=== PATIENT | female | born 1995 | race Caucasian/White ===

== ENCOUNTER → 2018-03-01 | Outpatient (CLI) | payer OTHER ==
--- NOTE | 2018-03-01 14:49 | RADIOLOGY IMAGING REPORT ---
FACILITY: PATIENT NAME: Nalini Salgado : 1995 MR: [id number] V: [id number] EXAM DATE: ORDERING PHYSICIAN: HOLLAND CARBONE TECHNOLOGIST: [place] [facility] [place] Nalini Sal[place] : 1995 Visit/Account:[id number] Date of Sevice: 03/01/2018 Exam type: Right lower quadrant ultrasound History: Right lower quadrant pain Comparison: None. TECHNIQUE: Grayscale and color flow imaging of the right lower quadrant was performed. Findings: The appendix is visualized and right lower quadrant and appears normal. The appendix measures 5.3 cm in length and 4 mm in greatest short axis. The right ovary measures 2.8 x 2.4 x 2.7 cm with a small involuting follicle. Normal color Doppler w aveforms are documented right ovary. Small moderate free fluid is noted right lower quadrant. Small benign right lower quadrant lymph node measures 1.2 x 1.2 x 0.4 cm. IMPRESSION: 1. The appendix is visualized and appears to be normal. 2. Normal-appearing right ovary for age with an involuting follicle. Patient was tender while scann ing over the right ovary. Report Dictated By: Rey Diehl MD at 03/01/2018 2:42 PM Report E-Signed By: Rey Diehl MD at 03/01/2018 2:45 PM WSN:[email or web address]
== END ==
LOC: US 13:26
PROVIDERS: ATTEND Physician Assistant
DX: R10.31 Right lower quadrant pain (principal)

== ENCOUNTER 2018-03-25 02:13 | Day surgery (SDC) | payer OTHER ==
[2018-03-25] VITALS (8 sets, daily range): BP systolic 100–116; BP diastolic 58–71
[~2018-03-25] VITALS: Ht 167.6 cm; Wt 55.8 kg
[~2018-03-25 02:13] MED LIST: MULT1CAP59 PO
[2018-03-25 07:40] LABS: PLATELET COUNT, AUTOMATED 261 K/uL (150-450)
[2018-03-25] MEDS ORDERED: FAMOTIDINE 20 MG TAB PO ONE (07:40)
[2018-03-25] MEDS ORDERED: LIDOCAINE/SOD BICARB 8.4% SYR ID ONE (08:10)
[2018-03-25] MEDS ORDERED: NORMOSOL R SOLN(*) 1000 ML BAG 1,000 ML IV PRN (08:10)
[2018-03-25] MEDS ORDERED: MIDAZOLAM 2 MG/2 ML VIAL IVP PRN (08:10)
[2018-03-25] MEDS ORDERED: DEXAMETHASONE SOD 4 MG/ML VIAL ONE (09:20)
[2018-03-25] MEDS ORDERED: PROPOFOL EMUL(*) 10MG/ML 20 ML 20 ML ONE (09:20)
[2018-03-25] MEDS ORDERED: ONDANSETRON 4 MG/2 ML VIAL ONE (09:20)
[2018-03-25] MEDS ORDERED: ROCURONIUM BROM 10 MG/ML 10 ML ONE (09:20)
[2018-03-25] MEDS ORDERED: fentaNYL CITR 100 MCG/2 ML AMP ONE ×3 (09:22→11:26)
[2018-03-25] MEDS ORDERED: ROPIVACAINE 0.2% 20 ML VIAL ONE (09:28)
[2018-03-25] MEDS ORDERED: LOR5/325 PO (09:29)
[2018-03-25] MEDS ORDERED: ONDA4TAB PO (09:29)
[2018-03-25] MEDS ORDERED: ESMOLOL 10 MG/ML 10ML SDV ONE (09:53)
[2018-03-25] MEDS ORDERED: KETOROLAC 30 MG/ML VIAL ONE (10:48)
[2018-03-25] MEDS ORDERED: HYDROmorphone HCL 2 MG/ML SDV ONE (10:50)
[2018-03-25] MEDS ORDERED: SUGAMMADEX SOD 200 MG/2 ML SDV ONE (11:00)
--- NOTE | 2018-03-25 11:16 | Post Operative Note ---
Operative Note - [employer] Operative Day Date: Mar 25, 2018 Time: 11:14 Physicians Surgeon: Tanisha Anesthesia: GETA Diagnosis Pre-Op Diagnosis: dyspareunia dysmenorrhea RLQ abdominal pain Post-Op Diagnosis: same adhesions RLQ abdomen endometriosis Procedure Findings: endometriosis adhesion in RLQ to accending colon Procedure(s): L-scope resection of endometriosis L-scope adhesiolysis Specimen Removed:(Maybe N/A): endometriosis posterior culdesac Complications: [id number] Fluids Fluids: 1200 ml Estimated Blood Loss: minimal Dictated Date OP Note Dictated: Mar 25, 2018 Time OP Note Dictated: 11:16 Copies to: KATIE HE MD ; KATIE HE MD Mar 25, 2018 11:16
[2018-03-25] MEDS ORDERED: LR(*) 1000 ML BAG 1,000 ML IV ONE (11:17)
--- NOTE | 2018-03-25 11:18 | Short(Outpt) Discharge Summary ---
Discharge Summary Reason for Hosp/Final Diag: (1) Dysmenorrhea (2) Dyspareunia, female (3) Endometriosis, pelvic peritoneum Hospital Course & Plan: s/p L-scope resection and adhesiolysis Departure Discharge to: Home, Self Care Discharge Instructions Home Meds Active Scripts Hydrocodone Bit/Acetaminophen (HYDROCODON-ACETAMINOPHEN 5-325) 1 Each Tablet, 1 EACH PO Q4-6H, #20 TAB 0 Refills Prov:KATIE HE MD 03/25/18 Reported Medications Multivitamin (MULTIVITAMINS) 1 Each Capsule, 1 EACH PO DAILY, CAPSULE 03/22/18 Follow up Referrals: FUNCTIONAL ARCHITECT - In 6 Weeks @ [facility] with KATIE HE MD Diet: Regular Activity: As Tolerated, With Walker, No Heavy Lifting Copies to: KATIE HE MD ; KATIE HE MD Mar 25, 2018 09:30
[2018-03-25] MEDS ORDERED: APAP/HYDROCODONE 325/5 TAB PO PRN (11:20)
--- NOTE | 2018-03-25 14:53 | OPERATIVE REPORT 1 ---
EVENT DATE: March 25, 2018 SURGEON: Mckinley Garay MD ANESTHESIOLOGIST: Davy Arango MD ANESTHESIA: General endotracheal. PREOPERATIVE DIAGNOSES 1. Dysmenorrhea. 2. Dyspareunia. 3. Right lower quadrant abdominal pain. POSTOPERATIVE DIAGNOSES 1. Dysmenorrhea. 2. Dyspareunia. 3. Right lower quadrant abdominal pain. 4. Pelvic peritoneal endometriosis. 5. Right lower quadrant abdominal wall adhesion. PROCEDURES PERFORMED 1. Laparoscopic excision of endometriosis. 2. Adhesiolysis. ESTIMATED BLOOD LOSS Minimal. FLUIDS Crystalloid 1200 mL IV. FINDINGS Inspecting the abdomen and the pelvis, there was an adhesion in the right lower quadrant of the ascending colon of an unknown reason to the anterior abdominal wall. The pelvis was normal on gross inspection with normal ovaries and tubes bilaterally, normal-appearing uterus. However, in the posterior cul-de-sac along the right side was a definite island of apparent endometriosis with surrounding inflammation. Bilateral ovarian fossae were clear of endometriosis. The anterior cul-de-sac was clear of endometriosis. No other visible lesions or pathology seen. PROCEDURE IN DETAIL Patient was brought to the operating room with a working IV, placed in the dorsal supine position. She was placed under general endotracheal anesthesia and then prepped and draped in the usual sterile fashion in the dorsal lithotomy position. Using a weighted speculum, the cervix was visualized and grasped on the anterior lip with a single-toothed tenaculum. It was carefully sounded to a depth of 8 cm anteverted. A size 8 GLORIA uterine manipulator was selected. The cervix was dilated to accommodate, and it was passed through the cervix into the uterus. Balloon inflated and secured, and all other instruments were then removed. The bladder had been drained prior to the procedure. Gloves were changed, and I proceeded laparoscopically by infiltrating the umbilicus with 0.2% Naropin. A 5 mm stab incision was made with an 11 blade scalpel within the umbilicus. The Veress needle was passed through this incision into the abdomen while stabilizing the anterior abdominal wall, and a pneumoperitoneum was created to an intra-abdominal pressure of 20 mmHg. This was then removed, and a 5 mm bladeless trocar was passed through the incision while stabilizing the anterior abdominal wall into the abdomen without injury. The abdomen and pelvis were surveyed with the above findings noted. The patient was moved to the Trendelenburg position. Two additional 5 mm ports were placed in the left lower quadrant and suprapubic location under a similar technique and via direct visualization with no incident. Through these ports instruments were passed to perform the procedure. The endometriosis in the posterior cul-de-sac was grasped with a [place] grasper and put on stretch. The island of endometriosis was excised from the peritoneum using Endo Maura with monopolar cautery. Upon completion, there was excellent hemostasis. The pelvis was copiously irrigated and suctioned dry. The adhesion in the right lower quadrant was then addressed, gradually taking down the adhesion from the anterior abdominal wall with the same Endo Shear scissors and monopolar cautery. Specific care was taken to avoid excision anywhere near the intestinal muscularis. The adhesions were taken down to a sufficient quantity as to relieve tension in that area. The appendix was visualized and seemed to be normal in appearance and long. The area was copiously irrigated and suctioned dry. She was leveled back out. Pneumoperitoneum was suctioned out. All instruments were removed from the abdomen. Skin incisions were repaired with a 4-0 Monocryl simple subdermal and covered with Dermabond skin adhesive. She tolerated the procedure well. Sponge, lap, instrument, and needle counts were all correct times three. She was awakened from anesthesia in stable condition and taken to Recovery. CORINE
== END 2018-03-25 12:13 | disposition home or self-care (01) ==
LOC: OR 02:13
PROVIDERS: ATTEND Obstetrics & Gynecology
DX: N94.6 Dysmenorrhea, unspecified (principal); N94.10 Unspecified dyspareunia; N80.3 Endometriosis of pelvic peritoneum; R10.31 Right lower quadrant pain; N73.6 Female pelvic peritoneal adhesions (postinfective)
CPT/HCPCS: 36415; 58662; 84703; 85025; 88307; J1100; J1170; J1885; J2250; J2405; J2704; J2795; J3010; J3490

== ENCOUNTER 2018-03-26 21:10 | Emergency (ER) | payer OTHER ==
[~2018-03-26 21:10] MED LIST changes: +LOR5/325 PO; +ONDA4TAB PO
--- NOTE | 2018-03-26 21:24 | ER Report ---
History and Physical Time Seen By MD: 21:24 Hx. of Stated Complaint: Patient states she had an exploratory laporscopic procedure yesterday, and is having chest pain and SOB today HPI/ROS CHIEF COMPLAINT: Chest pain and shortness of breath HISTORY OF PRESENT ILLNESS: This is a 22-year-old female. She had an exploratory laparotomy done yesterday for right lower quadrant abdominal pain. She was found to have endometriosis and some adhesions and had a lysis of adhesions. She is having some tenderness of the lower abdomen but what would be expected after surgery. Incisions have not been a problem. Tonight about 2 hours ago she started feeling short of breath and having chest pain. Improves when she lays back. When she tries to sit or stand this pain worsens. These 2 problems came on at the same time. She has no history of heart problems. No history of lung problems. No family history of these as well. No history of blood clots either personally or with family history. She has had no fevers or chills. She has been eating and drinking a little bit today. She did take one of her hydrocodone tablets at about 6:30 this evening, this was about 3-1/2 hours ago. REVIEW OF SYSTEMS: Allergies: Coded Allergies: Cephalosporins (Verified Allergy, Severe, RASH, 03/26/18) Sulfa (Sulfonamide Antibiotics) (Verified Allergy, Severe, THROAT SWELLING, 03/26/18) promethazine (Verified Allergy, Severe, RASH, 03/26/18) Home Meds Active Scripts Ondansetron (ZOFRAN ODT) 4 Mg Tab.rapdis, 4 MG PO Q12H PRN for NAUSEA, #10 TAB.LIZZ 0 Refills Prov:KATIE HE MD 03/25/18 Hydrocodone Bit/Acetaminophen (HYDROCODON-ACETAMINOPHEN 5-325) 1 Each Tablet, 1 EACH PO Q4-6H, #20 TAB 0 Refills Prov:KATIE HE MD 03/25/18 Reported Medications Multivitamin (MULTIVITAMINS) 1 Each Capsule, 1 EACH PO DAILY, CAPSULE 03/22/18 Reviewed Nurses Notes: Yes Hx Smoking: No Smoking Status: Never Smoker Exposure to Second Hand Smoke?: No Hx Substance Use Disorder: No Hx Alcohol Use: No Constitutional Vital Sign - Last 24 Hours 03/26/18 03/26/18 03/26/18 03/26/18 21:14 21:18 21:30 21:40 Temp 97.9 Pulse 74 81 Resp 17 20 B/P (MAP) 120/81 120/81 (94) 103/77 (86) Pulse Ox 95 97 O2 Delivery Room Air 03/26/18 03/26/18 03/26/18 03/26/18 22:00 22:05 22:30 22:35 Pulse 69 75 Resp 18 22 B/P (MAP) 106/70 (82) 116/69 (85) Pulse Ox 95 97 03/26/18 03/26/18 03/26/18 23:00 23:10 23:30 Pulse 67 Resp 18 B/P (MAP) 95/64 (74) 101/69 (80) Pulse Ox 97 Physical Exam General Appearance: The patient is alert. No acute distress. Eyes: Pupils are equal, round. No pallor, injection or icterus. ENT: Mucous membranes are moist. Normal oral mucosa. Posterior oropharynx is normal. Neck: Supple and non tender. Respiratory: Lungs are clear to auscultation. Cardiovascular: Regular rate and rhythm. No murmurs, gallops or rubs. Normal capillary refill. Normal pulses in both radial and in the posterior tibialis. No edema in upper or lower extremities. Gastrointestinal: Abdomen is soft. It is tender throughout. Abdominal incisions show no signs of infection. Nondistended. Guarding but no rebound. Normal active bowel sounds. No costovertebral angle tenderness with percussion. Neurological: Alert and oriented x3. No focal neurologic deficits. Skin: Warm and dry. No rashes. Musculoskeletal: No pain in the extremities. No pain with palpating the chest wall or the back. DIFFERENTIAL DIAGNOSIS: After history and physical exam, differential diagnosis was considered for shortness of breath and chest pain including but not limited to myocardial ischemia, pericarditis, pulmonary embolus, chest wall pain, pleural inflammation and pulmonary infectious causes. Medical Decision Making Data Points Result Diagram: 03/26/18212303/26/182123 Laboratory Hematology Test 03/26/18 21:24 Red Blood Count 5.09 M/uL (4.17-5.56) Mean Corpuscular Volume 90.1 fL (80.0-96.0) Mean Corpuscular Hemoglobin 30.5 pg (26.0-33.0) Mean Corpuscular Hemoglobin Concent 33.9 g/dL (32.0-36.0) Red Cell Distribution Width 12.9 % (11.5-14.5) Mean Platelet Volume 9.3 fL (7.2-11.1) Neutrophils (%) (Auto) 55.6 % (39.4-72.5) Lymphocytes (%) (Auto) 37.8 % (17.6-49.6) Monocytes (%) (Auto) 5.7 % (4.1-12.4) Eosinophils (%) (Auto) 0.3 % (0.4-6.7) Basophils (%) (Auto) 0.6 % (0.3-1.4) Nucleated RBC Relative Count (auto) 0.0 /100WBC Neutrophils # (Auto) 6.6 K/uL (2.0-7.4) Lymphocytes # (Auto) 4.5 K/uL (1.3-3.6) Monocytes # (Auto) 0.7 K/uL (0.3-1.0) Eosinophils # (Auto) 0.0 K/uL (0.0-0.5) Basophils # (Auto) 0.1 K/uL (0.0-0.1) Nucleated RBC Absolute Count (auto) 0.01 K/uL Erythrocyte Sedimentation Rate 2 mm/HOUR (0-20) Sodium Level 141 mmol/L (137-145) Potassium Level 3.3 mmol/L (3.5-5.0) Chloride Level 107 mmol/L (98-107) Carbon Dioxide Level 24 mmol/L (22-31) Blood Urea Nitrogen 10 mg/dl (7-18) Creatinine 0.80 mg/dl (0.52-1.04) Glomerular Filtration Rate Calc > 60.0 Random Glucose 97 mg/dl (75-110) Calcium Level 8.6 mg/dl (8.4-10.2) Total Bilirubin 0.4 mg/dl (0.2-1.3) Aspartate Amino Transf (AST/SGOT) 22 U/L (0-35) Alanine Aminotransferase (ALT/SGPT) 27 U/L (0-56) Alkaline Phosphatase 42 U/L (0-126) Troponin I < 0.012 ng/ml C-Reactive Protein < 0.5 mg/dl (<1.0) Total Protein 6.8 g/dl (6.3-8.2) Albumin 3.9 g/dl (3.5-5.0) Chemistry Test 03/26/18 21:24 White Blood Count 12.0 k/uL (4.5-11.0) Red Blood Count 5.09 M/uL (4.17-5.56) Hemoglobin 15.5 g/dL (12.0-16.0) Hematocrit 45.9 % (34.0-47.0) Mean Corpuscular Volume 90.1 fL (80.0-96.0) Mean Corpuscular Hemoglobin 30.5 pg (26.0-33.0) Mean Corpuscular Hemoglobin Concent 33.9 g/dL (32.0-36.0) Red Cell Distribution Width 12.9 % (11.5-14.5) Platelet Count 243 K/uL (150-450) Mean Platelet Volume 9.3 fL (7.2-11.1) Neutrophils (%) (Auto) 55.6 % (39.4-72.5) Lymphocytes (%) (Auto) 37.8 % (17.6-49.6) Monocytes (%) (Auto) 5.7 % (4.1-12.4) Eosinophils (%) (Auto) 0.3 % (0.4-6.7) Basophils (%) (Auto) 0.6 % (0.3-1.4) Nucleated RBC Relative Count (auto) 0.0 /100WBC Neutrophils # (Auto) 6.6 K/uL (2.0-7.4) Lymphocytes # (Auto) 4.5 K/uL (1.3-3.6) Monocytes # (Auto) 0.7 K/uL (0.3-1.0) Eosinophils # (Auto) 0.0 K/uL (0.0-0.5) Basophils # (Auto) 0.1 K/uL (0.0-0.1) Nucleated RBC Absolute Count (auto) 0.01 K/uL Erythrocyte Sedimentation Rate 2 mm/HOUR (0-20) Glomerular Filtration Rate Calc > 60.0 Calcium Level 8.6 mg/dl (8.4-10.2) Total Bilirubin 0.4 mg/dl (0.2-1.3) Aspartate Amino Transf (AST/SGOT) 22 U/L (0-35) Alanine Aminotransferase (ALT/SGPT) 27 U/L (0-56) Alkaline Phosphatase 42 U/L (0-126) Troponin I < 0.012 ng/ml C-Reactive Protein < 0.5 mg/dl (<1.0) Total Protein 6.8 g/dl (6.3-8.2) Albumin 3.9 g/dl (3.5-5.0) EKG/Imaging EKG Interpretation 12 lead EKG: Rhythm: normal sinus rhythm, rate 65 [place]: normal QRS: normal ST segments: normal Imaging CT PE DATE: 03/26/2018 11:00 PM INDICATION: Chest pain, short of breath, post op laparoscopy yesterday. COMPARISON: None. TECHNIQUE: Axial CT angiogram was obtained through the chest with intravenous contrast. Sagittal and coronal MPR and MIP coronal reformations were also generated. 75 mL isovue 370. One of the following dose optimization techniques was utilized in the performance of this exam: Automated exposure control; adjustment of the mA and/or kV according to the patient's size; or use of an iterative reconstruction technique. Specific details can be referenced in the facility's radiology CT exam operational policy. FINDINGS: Thyroid / Thoracic Inlet: No visualized thyroid nodule or supraclavicular lymphadenopathy. Pulmonary Arteries: Normal. Heart and Aorta: Normal-size heart with no pericardial effusion. Nonaneurysmal thoracic aorta. Mediastinum and [place]: No lymphadenopathy. Lungs and Pleura: No pleural effusion or pneumothorax. No suspicious consolidation. Breast and Axilla: No axillary lymphadenopathy. Upper Abdomen: Moderate volume of pneumoperitoneum Bones and Soft Tissues: There is a small volume of soft tissue emphysema in the left upper abdomen and lower chest. IMPRESSION: 1. No pulmonary embolism or other acute cardiopulmonary abnormality. 2. Moderate volume pneumoperitoneum and small volume of soft tissue emphysema in the lower chest and upper abdomen likely related to reported laparoscopy yes terday. Correlate with any suspicion of acute intra-abdominal pathology. Dr. Ayala discussed this case with MARIA LUZ JIN on 03/26/2018 11:10 PM. Report Dictated By: Pierre Ayala MD at 03/26/2018 11:00 PM ED Course/Re-evaluation Clinical Indication for ER IV: Hydration, IV Access ED Course After initial evaluation, discussed with the patient and we obtained a CT angiogram given the fact that she is just recently out of surgery. Postsurgical pain appears normal for the day after her surgery and what she had done. She has diffuse pain but it is not her main concern. We got a CT angiogram of the chest which was negative. EKG also was negative as noted above. Normal vital signs throughout her stay. Her labs also were unremarkable. I reviewed all this with the patient. Encouraged her to hydrate more, to keep taking her pain medicines and to get her pain under control. Her pain with deep breaths and feeling short of breath may simply be due to the pain not being adequately controlled. She'll go ahead and do this. She is not having any fevers and chills and I told her to return immediately should she have any fevers or chills with this. She expressed understanding. I did talk to her about possibly doing a CT scan of the abdomen and pelvis however with the surgery just yesterday and everything looking normal I did not think that was warranted, especially because of the normal postoperative pain that appeared to be present. She agreed and will return should she have worsening symptoms or developing fevers or chills. Decision to Disposition Date: Mar 26, 2018 Decision to Disposition Time: 23:38 Depart Departure Latest Vital Signs Vital Signs Date Time Temp Pulse Resp B/P (MAP) Pulse Ox O2 Delivery O2 Flow Rate FiO2 03/26/18 23:30 101/69 (80) 03/26/18 23:10 67 18 97 03/26/18 21:14 97.9 Room Air Impression: Primary Impression: Dyspnea Additional Impression: Chest pain Condition: Improved Disposition: HOME OR SELF-CARE Patient Instructions: Chest Pain (ED) Additional Instructions: We did not find any definitive causes of your chest pain and shortness of breath. There was no sign of infection in the lungs, or blood clots in the lungs. No sign of heart attack or other heart problem. Labs otherwise unremarkable with a mild elevation of white blood cell count. Vital signs were normal tonight including your oxygen levels. The pain with breathing could be due to the irritation of the diaphragm from recent surgery. We recommend continuing to get up an move about. Keep taking your pain medicines to get the pain under better control. Come in right away if you are having fevers/chills, or if having worsening symptoms. Call Dr. He's office on Wednesday to let him know you were in the ER and possible sooner follow-up. Problem Qualifiers Primary Impression: Dyspnea Dyspnea type: unspecified Qualified Codes: R06.00 - Dyspnea, unspecified Additional Impression: Chest pain Chest pain type: chest pain on breathing Qualified Codes: R07.1 - Chest pain on breathing MARIA LUZ JIN MD Mar 26, 2018 21:24
[2018-03-26 21:47] LABS: PLATELET COUNT, AUTOMATED 243 K/uL (150-450)
[2018-03-26] MEDS ORDERED: NS(*) 0.9% 50 ML BAG 50 ML ONE (22:08)
[2018-03-26] MEDS ORDERED: IOPAMIDOL 76% 75 ML INFUS BTL 75 ML ONE (22:08)
--- NOTE | 2018-03-26 23:14 | RADIOLOGY IMAGING REPORT ---
FACILITY: [facility] PATIENT NAME: Nalini Salgado : 1995 MR: [id number] V: [id number] EXAM DATE: ORDERING PHYSICIAN: MARIA LUZ JIN TECHNOLOGIST: Location: [facility] [place] Patient: Nalini Salgado : 1995 Visit/Account:[id number] Date of Sevice: 03/26/2018 CT PE DATE: 03/26/2018 11:00 PM INDICATION: Chest pain, short of breath, post op laparoscopy yesterday. COMPARISON: None. TECHNIQUE: Axial CT angiogram was obtained through the chest with intravenous contrast. Sagittal an d coronal MPR and MIP coronal reformations were also generated. 75 mL isovue 370. One of the follow ing dose optimization techniques was utilized in the performance of this exam: Automated exposure con trol; adjustment of the mA and/or kV according to the patient's size; or use of an iterative reconst ruction technique. Specific details can be referenced in the facility's radiology CT exam operationa l policy. FINDINGS: Thyroid / Thoracic Inlet: No visualized thyroid nodule or supraclavicular lymphadenopathy. Pulmonary Arteries: Normal. Heart and Aorta: Normal-size heart with no pericardial effusion. Nonaneurysmal thoracic aorta. Mediastinum and [place]: No lymphadenopathy. Lungs and Pleura: No pleural effusion or pneumothorax. No suspicious consolidation. Breast and Axilla: No axillary lymphadenopathy. Upper Abdomen: Moderate volume of pneumoperitoneum Bones and Soft Tissues: There is a small volume of soft tissue emphysema in the left upper abdomen an d lower chest. IMPRESSION: 1. No pulmonary embolism or other acute cardiopulmonary abnormality. 2. Moderate volume pneumoperitoneum and small volume of soft tissue emphysema in the lower chest and upper abdomen likely related to reported laparoscopy yesterday. Correlate with any suspicion of acu te intra-abdominal pathology. Dr. Ayala discussed this case with MARIA LUZ JIN on 03/26/2018 11:10 PM. Report Dictated By: Pierre Ayala MD at 03/26/2018 11:00 PM Report E-Signed By: Pierre Ayala MD at 03/26/2018 11:10 PM WSN:[id number]
[2018-03-26] MEDS ORDERED: APAP/HYDROCODONE 325/5 TAB PO ONE (23:35)
--- NOTE | 2018-03-26 23:41 | EKG ---
[place] [facility] [place] NAME: KELLEN WEEKS : [id number] MR: [id number] V: [id number] EXAM DATE: ORDERING PHYSICIAN: MARIA LUZ JIN TECHNOLOGIST: ANA PAULA Sanders Reason : CHEST PAIN Blood Pressure : / mmHG Vent. Rate : 065 BPM Atrial Rate : 065 BPM P-R Int : 132 ms QRS Dur : 070 ms QT Int : 400 ms P-R-T Axes : 062 068 057 degrees QTc Int : 416 ms Normal sinus rhythm Normal ECG No previous ECGs available Confirmed by DAMI PULLIAM ([id number]) on 03/27/2018 7:21:47 AM Referred By: Confirmed By:DAMI PULLIAM
[2018-03-27] VITALS: BP 105/72
== END 2018-03-27 00:03 | disposition home or self-care (01) ==
LOC: ER 21:28
DX: R06.02 Shortness of breath (principal); R07.1 Chest pain on breathing
CPT/HCPCS: 71275; 84484; 85025; 85651; 86140; 93005; 99284; J7050; Q9967; 82040; 82247; 82310; 82374; 82435; 82565; 82947; 84075; 84132; 84155; 84295; 84450; 84460; 84520

== ENCOUNTER 2018-03-31 09:54 | Emergency (ER) | payer OTHER ==
--- NOTE | 2018-03-31 10:26 | ER Report ---
History and Physical Time Seen By MD: 10:05 Hx. of Stated Complaint: CHEST PAIN AND SOB SINCE LAST NIGHT, HAD A LAPAROSCOPY ON WEDNESDAY, WAS SEEN HERE ON SAT FOR THESE SYMPTOMS, THEN WAS OK FOR A FEW DAYS HPI/ROS CHIEF COMPLAINT: chest pain HISTORY OF PRESENT ILLNESS: Patient is 22-year-old female who is 6 days status post ex-lap with reported adhesions and endometriosis. She was seen 5 days ago for complaint of chest pain. At that time a CT PE was performed which showed pneumoperitoneum as expected postop, though no PE. Patient had subsequently been feeling well until last night, when she began to develop pain again. Patient points to epigastric area. Pain is sharp, intermittent, lasting from minutes to more than half an hour. Pain is nonradiating. However, patient does state that she has continued left shoulder pain. Patient has not had prior similar pain with the exception of the presentation 5 days ago. Pain appears to be slightly worse with exertion, better when lying down. Pain is associated with shortness of breath which is also worse with exertion, better with lying down. Patient does not have cough, fever, chills. Patient does not have vomiting. She has taken occasional Pompe[place] for pain. She states she took 1-2 yesterday. Does not notice symptoms that come on after Pompeii. Patient does not have UTI symptoms, leg swelling, leg pain. She has returned to normal activity. She notes no family history of sudden cardiac or blood clotting. REVIEW OF SYSTEMS: Constitutional: No fever, no chills. Eyes: No discharge. ENT: No sore throat. Cardiovascular: above Respiratory: above Gastrointestinal: above Genitourinary: no uti symptoms Musculoskeletal: No back pain. Skin: No rashes. Neurological: No headache. Remainder of the 14 system rev: Yes Allergies: Coded Allergies: Cephalosporins (Verified Allergy, Severe, RASH, 03/26/18) Sulfa (Sulfonamide Antibiotics) (Verified Allergy, Severe, THROAT SWELLING, 03/26/18) promethazine (Verified Allergy, Severe, RASH, 03/26/18) Home Meds Active Scripts Ondansetron (ZOFRAN ODT) 4 Mg Tab.rapdis, 4 MG PO Q12H PRN for NAUSEA, #10 TAB.LIZZ 0 Refills Prov:KATIE HE MD 03/25/18 Hydrocodone Bit/Acetaminophen (HYDROCODON-ACETAMINOPHEN 5-325) 1 Each Tablet, 1 EACH PO Q4-6H, #20 TAB 0 Refills Prov:KATIE HE MD 03/25/18 Reported Medications Multivitamin (MULTIVITAMINS) 1 Each Capsule, 1 EACH PO DAILY, CAPSULE 03/22/18 Reviewed Nurses Notes: Yes Old Medical Records Reviewed: Yes Hx Smoking: No Smoking Status: Never Smoker Exposure to Second Hand Smoke?: No Hx Substance Use Disorder: No Hx Alcohol Use: No Constitutional Vital Sign - Last 24 Hours 03/31/18 03/31/18 03/31/18 03/31/18 09:54 09:58 09:59 10:00 Temp 97.5 Pulse ??? 73 Resp 20 B/P (MAP) 113/84 113/84 (94) 113/74 (87) Pulse Ox 97 O2 Delivery Room Air 03/31/18 03/31/18 03/31/18 03/31/18 10:24 10:54 11:00 11:24 Pulse 80 70 63 Resp 10 23 16 B/P (MAP) 105/76 (86) Pulse Ox 96 97 95 03/31/18 03/31/18 03/31/18 03/31/18 11:30 11:35 12:03 12:05 Pulse 74 71 Resp 17 12 B/P (MAP) 97/68 (78) 110/77 (88) Pulse Ox 97 98 03/31/18 03/31/18 03/31/18 03/31/18 12:30 12:35 13:00 13:05 Pulse 80 87 Resp 8 17 B/P (MAP) 110/77 (88) 104/69 (81) Pulse Ox 97 97 03/31/18 03/31/18 03/31/18 03/31/18 13:30 13:40 13:49 14:10 Pulse 97 88 Resp 10 11 B/P (MAP) 109/82 (91) 109/81 (90) Pulse Ox 97 95 03/31/18 03/31/18 03/31/18 03/31/18 14:30 14:40 15:00 15:05 Pulse 70 78 Resp 12 10 B/P (MAP) 111/66 (81) 104/69 (81) Pulse Ox 95 95 03/31/18 03/31/18 03/31/18 03/31/18 15:30 15:35 16:00 16:05 Pulse 95 78 Resp 12 13 B/P (MAP) 104/66 (79) 96/61 (73) Pulse Ox 93 93 03/31/18 03/31/18 03/31/18 03/31/18 16:30 16:35 17:00 17:05 Pulse 77 90 Resp 19 21 B/P (MAP) 90/59 (69) 100/75 (83) Pulse Ox 93 95 03/31/18 03/31/18 17:20 17:30 Pulse 79 Resp 10 B/P (MAP) 106/75 (85) Pulse Ox 94 Physical Exam General Appearance: The patient is alert, has no immediate need for airway protection and no signs of toxicity. [ ] Eyes: Pupils equal and round no pallor or injection. ENT, Mouth: Mucous membranes are moist. Respiratory: There are no retractions, lungs are clear to auscultation. Cardiovascular: Regular rate and rhythm. no m/r/g Gastrointestinal: epigastric and LUQ ttp with mild guarding. No rebound, no distension. No pulsatile masses. Neurological: alert, oriented, moves all extremities Skin: Warm and dry, no rashes. Musculoskeletal: Neck is supple non tender. Extremities are nontender, nonswollen and have full range of motion. DIFFERENTIAL DIAGNOSIS: After history and physical exam differential diagnosis was considered for chest pain including but not limited to myocardial ischemia, pericarditis pulmonary embolus, chest wall pain, pleural inflammation and pulmonary infectious causes.shortness of breath including but not limited to pulmonary infectious process, COPD, asthma, pulmonary embolus and congestive heart failure. Medical Decision Making Data Points Result Diagram: 03/31/18 1044 03/31/18 1044 Laboratory Hematology Test 03/31/18 10:30 03/31/18 10:44 Urine Color Colorless Urine Clarity Clear Urine pH 6.0 pH (4.8-9.5) Urine Specific [place] 1.002 Urine Protein Negative mg/dL (NEGATIVE) Urine Glucose (UA) Negative mg/dL (NEGATIVE) Urine Ketones Negative mg/dL (NEGATIVE) Urine Blood Negative (NEGATIVE) Urine Nitrite Negative (NEGATIVE) Urine Bilirubin Negative (NEGATIVE) Urine Urobilinogen Negative mg/dL (0.2-1.9) Urine Leukocyte Esterase Negative (NEGATIVE) Urine RBC None /HPF (0-2/HPF) Urine WBC None /HPF (0-5/HPF) Urine Squamous Epithelial Cells None /LPF (</=FEW) Urine Bacteria Few /HPF (NONE-FEW) Urine Mucus None /HPF (NONE-FEW) Red Blood Count 5.34 M/uL (4.17-5.56) Mean Corpuscular Volume 90.1 fL (80.0-96.0) Mean Corpuscular Hemoglobin 30.9 pg (26.0-33.0) Mean Corpuscular Hemoglobin Concent 34.2 g/dL (32.0-36.0) Red Cell Distribution Width 12.7 % (11.5-14.5) Mean Platelet Volume 8.7 fL (7.2-11.1) Neutrophils (%) (Auto) 61.6 % (39.4-72.5) Lymphocytes (%) (Auto) 30.0 % (17.6-49.6) Monocytes (%) (Auto) 6.0 % (4.1-12.4) Eosinophils (%) (Auto) 2.1 % (0.4-6.7) Basophils (%) (Auto) 0.3 % (0.3-1.4) Nucleated RBC Relative Count (auto) 0.1 /100WBC Neutrophils # (Auto) 4.6 K/uL (2.0-7.4) Lymphocytes # (Auto) 2.3 K/uL (1.3-3.6) Monocytes # (Auto) 0.5 K/uL (0.3-1.0) Eosinophils # (Auto) 0.2 K/uL (0.0-0.5) Basophils # (Auto) 0.0 K/uL (0.0-0.1) Nucleated RBC Absolute Count (auto) 0.00 K/uL Sodium Level 140 mmol/L (137-145) Potassium Level 3.8 mmol/L (3.5-5.0) Chloride Level 107 mmol/L (98-107) Carbon Dioxide Level 24 mmol/L (22-31) Blood Urea Nitrogen 9 mg/dl (7-18) Creatinine 0.90 mg/dl (0.52-1.04) Glomerular Filtration Rate Calc > 60.0 Random Glucose 87 mg/dl (75-110) Calcium Level 9.5 mg/dl (8.4-10.2) Total Bilirubin 1.0 mg/dl (0.2-1.3) Aspartate Amino Transf (AST/SGOT) 29 U/L (0-35) Alanine Aminotransferase (ALT/SGPT) 50 U/L (0-56) Alkaline Phosphatase 42 U/L (0-126) Troponin I < 0.012 ng/ml Total Protein 7.6 g/dl (6.3-8.2) Albumin 4.4 g/dl (3.5-5.0) Lipase 106 U/L (23-300) Human Chorionic Gonadotropin, Qual Negative (NEGATIVE) Chemistry Test 03/31/18 10:30 03/31/18 10:44 Urine Color Colorless Urine Clarity Clear Urine pH 6.0 pH (4.8-9.5) Urine Specific [place] 1.002 Urine Protein Negative mg/dL (NEGATIVE) Urine Glucose (UA) Negative mg/dL (NEGATIVE) Urine Ketones Negative mg/dL (NEGATIVE) Urine Blood Negative (NEGATIVE) Urine Nitrite Negative (NEGATIVE) Urine Bilirubin Negative (NEGATIVE) Urine Urobilinogen Negative mg/dL (0.2-1.9) Urine Leukocyte Esterase Negative (NEGATIVE) Urine RBC None /HPF (0-2/HPF) Urine WBC None /HPF (0-5/HPF) Urine Squamous Epithelial Cells None /LPF (</=FEW) Urine Bacteria Few /HPF (NONE-FEW) Urine Mucus None /HPF (NONE-FEW) White Blood Count 7.6 k/uL (4.5-11.0) Red Blood Count 5.34 M/uL (4.17-5.56) Hemoglobin 16.5 g/dL (12.0-16.0) Hematocrit 48.1 % (34.0-47.0) Mean Corpuscular Volume 90.1 fL (80.0-96.0) Mean Corpuscular Hemoglobin 30.9 pg (26.0-33.0) Mean Corpuscular Hemoglobin Concent 34.2 g/dL (32.0-36.0) Red Cell Distribution Width 12.7 % (11.5-14.5) Platelet Count 231 K/uL (150-450) Mean Platelet Volume 8.7 fL (7.2-11.1) Neutrophils (%) (Auto) 61.6 % (39.4-72.5) Lymphocytes (%) (Auto) 30.0 % (17.6-49.6) Monocytes (%) (Auto) 6.0 % (4.1-12.4) Eosinophils (%) (Auto) 2.1 % (0.4-6.7) Basophils (%) (Auto) 0.3 % (0.3-1.4) Nucleated RBC Relative Count (auto) 0.1 /100WBC Neutrophils # (Auto) 4.6 K/uL (2.0-7.4) Lymphocytes # (Auto) 2.3 K/uL (1.3-3.6) Monocytes # (Auto) 0.5 K/uL (0.3-1.0) Eosinophils # (Auto) 0.2 K/uL (0.0-0.5) Basophils # (Auto) 0.0 K/uL (0.0-0.1) Nucleated RBC Absolute Count (auto) 0.00 K/uL Glomerular Filtration Rate Calc > 60.0 Calcium Level 9.5 mg/dl (8.4-10.2) Total Bilirubin 1.0 mg/dl (0.2-1.3) Aspartate Amino Transf (AST/SGOT) 29 U/L (0-35) Alanine Aminotransferase (ALT/SGPT) 50 U/L (0-56) Alkaline Phosphatase 42 U/L (0-126) Troponin I < 0.012 ng/ml Total Protein 7.6 g/dl (6.3-8.2) Albumin 4.4 g/dl (3.5-5.0) Lipase 106 U/L (23-300) Human Chorionic Gonadotropin, Qual Negative (NEGATIVE) Urinalysis Test 03/31/18 10:30 Urine Color Colorless Urine Clarity Clear Urine pH 6.0 pH (4.8-9.5) Urine Specific [place] 1.002 Urine Protein Negative mg/dL (NEGATIVE) Urine Glucose (UA) Negative mg/dL (NEGATIVE) Urine Ketones Negative mg/dL (NEGATIVE) Urine Blood Negative (NEGATIVE) Urine Nitrite Negative (NEGATIVE) Urine Bilirubin Negative (NEGATIVE) Urine Urobilinogen Negative mg/dL (0.2-1.9) Urine Leukocyte Esterase Negative (NEGATIVE) Urine RBC None /HPF (0-2/HPF) Urine WBC None /HPF (0-5/HPF) Urine Squamous Epithelial Cells None /LPF (</=FEW) Urine Bacteria Few /HPF (NONE-FEW) Urine Mucus None /HPF (NONE-FEW) ED Course/Re-evaluation ED Course 22 f presents for second time, 5 d post op from ex lap with reported findings of endometriosis and adhesions. She had pe eval on last evaluation which was neg. She was imprvoed, but developed the same pain last night, with e/o mild Kehr's sign. CT shows persistent pneumoperitoneum that, in discussion with radiologist, is not out of range of norm, though more than usual. I requested ob eval given repeat eval, persistent pain. OB evaluates and feesl that outpt eval is reasonable. Pt is comfortable with this plan. CT shows no e/o perforated viscous, amenable to d/c with SRP's. Decision to Disposition Date: Mar 31, 2018 Decision to Disposition Time: 17:24 Depart Departure Latest Vital Signs Vital Signs Date Time Temp Pulse Resp B/P (MAP) Pulse Ox O2 Delivery O2 Flow Rate FiO2 03/31/18 17:30 106/75 (85) 03/31/18 17:20 79 10 94 03/31/18 09:58 97.5 Room Air Impression: Primary Impression: Surgical pneumoperitoneum Additional Impression: Chest pain Condition: Condition Unchanged Disposition: HOME OR SELF-CARE Referrals: MIRIAM RIVERA MD 2 Days Patient Instructions: Chest Pain (ED) Additional Instructions: As we discussed, I do not see a clear cause of your symptoms. Your Ct shows persistent air, though this is somewhat improved. You may try tums, maalox, or another antacid to see if that helps your symptoms. It is reasonable to follow up closely with OB, however, if you worsen or have further concerns, please return for further evaluation. Problem Qualifiers Additional Impression: Chest pain Chest pain type: unspecified Qualified Codes: R07.9 - Chest pain, unspecified REYES STROUD MD Mar 31, 2018 10:26
[2018-03-31 10:52] LABS: PLATELET COUNT, AUTOMATED 231 K/uL (150-450)
--- NOTE | 2018-03-31 11:27 | EKG ---
FACILITY: [facility] [place] PATIENT NAME: KELLEN WEEKS : [id number] MR: [id number] V: [id number] EXAM DATE: ORDERING PHYSICIAN: REYES STROUD TECHNOLOGIST: ATTILA Test Reason : CHEST PAIN Blood Pressure : / mmHG Vent. Rate : 064 BPM Atrial Rate : 064 BPM P-R Int : 134 ms QRS Dur : 082 ms QT Int : 418 ms P-R-T Axes : 072 071 053 degrees QTc Int : 431 ms Normal sinus rhythm T wave abnormality, consider anterior ischemia Abnormal ECG When compared with ECG of 26-MAR-2018 21:35, Now with T wave inversion in the ant/sep region Confirmed by LINDA ALDANA ([id number]) on 03/31/2018 12:53:54 PM Referred By: MAXIMUS Confirmed By:LINDA ALDANA
--- NOTE | 2018-03-31 11:36 | RADIOLOGY IMAGING REPORT ---
FACILITY: [facility] PATIENT NAME: Nalini Salgado : 1995 MR: [id number] V: [id number] EXAM DATE: ORDERING PHYSICIAN: REYES STROUD TECHNOLOGIST: Location: [facility] Patient: Nalini Salgado : 1995 Visit/Account:[id number] Date of Sevice: 03/31/2018 Study: Frontal and lateral views of the chest Indication: Shortness of breath Comparison study: March 26, 2018 Findings: PA and lateral views of the chest demonstrate no evidence of acute infiltrate. There is no evidence of pleural effusion. There is no evidence of pneumothorax. The mediastinal, cardiac, and diaphragmatic contours are unremarkable. The visualized bony structures are unremarkable. There is a pneumoperitoneum present. This was present on the previous CTA. IMPRESSION: No significant chest abnormality identified. There is a pneumoperitoneum present. Dr. Stroud was made aware of these findings at 11:30 AM. Report Dictated By: Roberto Xiong at 03/31/2018 11:25 AM Report E-Signed By: Roberto Xiong at 03/31/2018 11:31 AM WSN:[id number]
[2018-03-31] MEDS ORDERED: DIATRIZOATE MEGL/DIATRIZOA SOD 367 MG/ML SOLN ONE (12:08)
[2018-03-31] MEDS ORDERED: ONDANSETRON 4 MG/2 ML VIAL IVP ONE (13:15)
[2018-03-31] MEDS ORDERED: IOPAMIDOL 76% 75 ML INFUS BTL 75 ML ONE (13:17)
--- NOTE | 2018-03-31 15:07 | RADIOLOGY IMAGING REPORT ---
FACILITY: [facility] PATIENT NAME: Nalini Salgado : 1995 MR: [id number] V: [id number] EXAM DATE: ORDERING PHYSICIAN: REYES STROUD TECHNOLOGIST: Location: [facility] Patient: Nalini Salgado : 1995 Visit/Account:[id number] Date of Sevice: 03/31/2018 EXAMINATION: CT abdomen and pelvis with contrast COMPARISON: None. HISTORY: Persistent free air 6 days post exploratory laparoscopy. Abdominal pain. PROCEDURE: Multiplanar contrast enhanced CT of the abdomen and pelvis with 75 mL intravenous Isovue 3 70 and enteric contrast. Negative. One of the following dose optimization techniques was utilized in the performance of this exam: Automated exposure control; adjustment of the mA and/or kV according to the patient's size; or use of an iterative reconstruction technique. Specific details can be refer enced in the facility's radiology CT exam operational policy. FINDINGS: Visualized thorax: No evidence of acute disease within the visualized lower thorax. Liver: Negative. Gallbladder and biliary system: Cholecystectomy. No bile duct dilation. Spleen: Negative. Pancreas: Negative. Adrenal glands: Negative. Kidneys and bladder: No renal mass or evidence of an obstructive uropathy. Urinary bladder is unrema rkable. Vessels: Negative. Bowel and mesentery: Stomach, small bowel, and appendix are within normal limits. Minimal stool in th e colon. No bowel or mesenteric inflammation. Enteric contrast is present throughout the entirety of the bowel there is no evidence of contrast extravasation. Pelvic organs: Normally positioned intrauterine device. No adnexal mass. Lymph nodes: No adenopathy. Free air/free fluid: Small amount of pneumoperitoneum. No fluid collection. Abdominal wall and osseous structures: Minimal postoperative change. No abdominal wall fluid collecti on. Minimal soft tissue gas. Osseous structures are unremarkable. IMPRESSION: Small amount of pneumoperitoneum. As there is no other evidence of intra-abdominal pathology this con tinues to be most suggestive of postoperative gas although continued clinical follow-up is required t o fully exclude the presence of an occult bowel injury. Results were discussed with REYES STROUD at 03/31/2018 2:58 PM. Report Dictated By: Thierry Sarabia MD at 03/31/2018 2:17 PM Report E-Signed By: Thierry Sarabia MD at 03/31/2018 3:02 PM WSN:[id number]
--- NOTE | 2018-03-31 17:01 | RADIOLOGY IMAGING REPORT ---
[place] [facility] [place]IENT NAME: Nalini Salgado : 1995 MR: [id number] V: [id number] EXAM DATE: ORDERING PHYSICIAN: REYES STROUD TECHNOLOGIST: Location: [facility] [place] Patient: Nalini Salgado : 1995 Visit/Account:[id number] Date of Sevice: 03/31/2018 VENOUS DOPP LOWER BILAT EXTREM Provided history: post op, dyspnea, lightheaded, evaluate for vte Additional pertinent history: none COMPARISON STUDIES: No relevant priors FINDINGS: Bilateral grayscale, duplex and color Doppler interrogation of the lower extremity deep venous system from common femoral vein to proximal calf was performed. The greater saphenous vein was evaluated us ing similar technique. Right lower extremity: Common femoral vein: negative Femoral vein: negative Deep femoral vein: negative Popliteal vein: negative Visualized deep calf veins: negative Popliteal fossa: negative Greater saphenous vein in the proximal thigh: negative Left lower extremity: Common femoral vein: negative Femoral vein: negative Deep femoral vein: negative Popliteal vein: negative Visualized deep calf veins: negative Popliteal fossa: negative Greater saphenous vein in the proximal thigh: negative IMPRESSION: No evidence of acute DVT in either lower extremity. Report Dictated By: Jude Ortiz MD at 03/31/2018 4:55 PM Report E-Signed By: Jude Ortiz MD at 03/31/2018 4:58 PM WSN:[id number]
[2018-03-31 17:30] VITALS: BP 106/75
--- NOTE | 2018-03-31 18:08 | Hospitalist Consultation ---
History of Present Illness Requesting Physician Dr. Murdock Reason for Consult Pain after surgery Chief Complaint Epigastric pain History of Present Illness 22-year-old G0 presents to the emergency department with a three-day history of epigastric pain with activity and deep inspiration. She underwent a diagnostic laparoscopy with adhesiolysis on 03/25/[address] Garay. She was found to have endometriosis. Initially she felt well, but had right sided shoulder pain consistent with diaphragmatic irritation. Over the last 3 days she has had epigastric sharp pain with deep inspiration. This pain only occurs when she is standing or being active. She had a chest CT the other day in the emergency department which was negative for pulmonary embolism. An abdominal CT today reveals persistent pneumoperitoneum, but no evidence of bowel injury or other pathology. She has generalized abdominal discomfort, but not enough that she would take any narcotics today. Her last dose of hydrocodone at home was last night. She has a history of Gastro esophageal reflux, and reports this pain is different. She denies any fevers or chills. History Home Meds Active Scripts Ondansetron (ZOFRAN ODT) 4 Mg Tab.rapdis, 4 MG PO Q12H PRN for NAUSEA, #10 TAB.LIZZ 0 Refills Prov:KATIE GARAY MD 03/25/18 Hydrocodone Bit/Acetaminophen (HYDROCODON-ACETAMINOPHEN 5-325) 1 Each Tablet, 1 EACH PO Q4-6H, #20 TAB 0 Refills Prov:KATIE GARAY MD 03/25/18 Reported Medications Multivitamin (MULTIVITAMINS) 1 Each Capsule, 1 EACH PO DAILY, CAPSULE 03/22/18 Allergies: Coded Allergies: Cephalosporins (Verified Allergy, Severe, RASH, 03/26/18) Sulfa (Sulfonamide Antibiotics) (Verified Allergy, Severe, THROAT SWELLING, 03/26/18) promethazine (Verified Allergy, Severe, RASH, 03/26/18) Hx Smoking: No Smoking Status: Never Smoker Exposure to Second Hand Smoke?: No Caffeine Intake: Tea, Soda Caffeine/Cups Per Day: OCCASIONAL Hx Alcohol Use: No Hx Substance Use Disorder: No Social Drug Use: Never Review of Systems Constitutional: No Fever Neurological: No Syncope Cardiovascular: Chest Pain (as per HPI); No Palpitations Respiratory: No Shortness of Breath Gastrointestinal: No Nausea, No Vomiting, No Diarrhea; Other (see HPI) Genitourinary: No Dysuria Musculoskeletal: No Pain Psychiatric: No Depression, No Anxiety Exam Vital Signs Vital Signs Date Time Temp Pulse Resp B/P (MAP) Pulse Ox O2 Delivery O2 Flow Rate FiO2 03/31/18 17:30 106/75 (85) 03/31/18 17:20 79 10 94 03/31/18 09:58 97.5 Room Air General Appearance: Alert, Awake, No Acute Distress Neuro: No Gross deficits Cardiovascular: Normal Rhythm & Peripheral Pulses, Regular Rate and Rhythm Respiratory: No Respiratory Distress, Clear to Auscultation GI: Abd Soft and Non-Tender, Other (incisions are healing well without sign of infection) Musculoskeletal: No Weakness/Pain Extremities: Soft and Non Tender Integumentary: Skin Intact without Lesion / Mass Psych: Alert & Oriented X3, Appropriate Mood & Affect Medical Decision Making Data Points Result Diagram: 03/31/18 1044 03/31/18 1044 Assessment and Plan Problems: (1) Chest pain Status: Acute Assessment & Plan: 22-year-old G0 presents to the emergency department with a three-day history of epigastric pain with activity and deep inspiration. She has had a thorough examination by Dr. Murdock, without indication for the cause of her discomfort other than possible diaphragmatic irritation due to pneumoperitoneum. She had a normal bilateral DVT evaluation with ultrasound. I do not see anything concerning on her exam today. She was given precautions and asked to follow-up within the next week with Dr. Garay. Time Spent on Plan of Care: < 30 min Venous Thromboembolism Antithrombotics Is Pt On Any Antithrombotics?: No Exam Sepsis Risk: No Definite Risk Problem Qualifiers (1) Chest pain: Chest pain type: unspecified Qualified Codes: R07.9 - Chest pain, unspecified MIRIAM RIVERA MD Mar 31, 2018 18:08
== END 2018-03-31 17:37 | disposition home or self-care (01) ==
LOC: ER 10:13
DX: K66.8 Other specified disorders of peritoneum (principal); R07.9 Chest pain, unspecified; Z98.890 Other specified postprocedural states
CPT/HCPCS: 36415; 71046; 74177; 81001; 83690; 84484; 84703; 85025; 93005; 93970; 96374; 99285; J2405; Q9967; 82040; 82247; 82310; 82374; 82435; 82565; 82947; 84075; 84132; 84155; 84295; 84450; 84460; 84520

== ENCOUNTER 2018-04-13 10:59 | Emergency (ER) | payer OTHER ==
--- NOTE | 2018-04-13 11:07 | ER Report ---
History and Physical Time Seen By MD: 11:08 HPI/ROS CHIEF COMPLAINT: Right-sided chest pain shortness breath HISTORY OF PRESENT ILLNESS: 23-year-old female patient presents to emergency room with complaint of right-sided chest pain shortness of breath. Patient states this been going on for the last 3 weeks. She states proximal with 3 weeks ago she had surgery looking at her abdomen, which showed endometriosis. She states that she has been changed on her control recently. She states that after surgery start having some shortness of breath to the right side of the chest. She denies any nausea, vomiting or diarrhea. Patient states that the shortness of breath seems worse with activity. She is in normal she has no difficulties with exercise, however recently she has noted shortness of breath with climbing up stairs. Patient has not taken any medication for this. She denies having any fevers or chills. Patient was seen by her primary care provider on Wednesday and was told that they're concerned about a possible blood clot and felt that she may need a CT pulmonary angiogram. She states that she has gotten worse since then and came in today for further evaluation. REVIEW OF SYSTEMS: Respiratory: As noted above Cardiovascular: As noted above Gastrointestinal: No vomiting, no abdominal pain. Musculoskeletal: No back pain. Allergies: Coded Allergies: Cephalosporins (Verified Allergy, Severe, RASH, 03/26/18) Sulfa (Sulfonamide Antibiotics) (Verified Allergy, Severe, THROAT SWELLING, 03/26/18) promethazine (Verified Allergy, Severe, RASH, 03/26/18) Home Meds Active Scripts Omeprazole (OMEPRAZOLE) 40 Mg Capsule., 40 MG PO QDAY, #30 CAP Prov:LEO CARPENTER 04/13/18 Ondansetron (ZOFRAN ODT) 4 Mg Tab.rapdis, 4 MG PO Q12H PRN for NAUSEA, #10 TAB.LIZZ 0 Refills Prov:KATIE HE MD 03/25/18 Hydrocodone Bit/Acetaminophen (HYDROCODON-ACETAMINOPHEN 5-325) 1 Each Tablet, 1 EACH PO Q4-6H, #20 TAB 0 Refills Prov:KATIE HE MD 03/25/18 Reported Medications Multivitamin (MULTIVITAMINS) 1 Each Capsule, 1 EACH PO DAILY, CAPSULE 03/22/18 Past Medical/Surgical History Patient has a past medical history of reflux, had a hernia, endometriosis. Patient has surgical history of cholecystectomy, ankle surgery, tonsillectomy, exploratory laparoscopy Reviewed Nurses Notes: Yes Hx Smoking: No Smoking Status: Never Smoker Exposure to Second Hand Smoke?: No Hx Substance Use Disorder: No Hx Alcohol Use: No Constitutional Vital Sign - Last 24 Hours 04/13/18 04/13/18 04/13/18 04/13/18 10:59 11:03 11:04 11:29 Temp 98.4 Pulse ??? 100 86 Resp 20 16 B/P (MAP) 119/72 (88) 119/72 Pulse Ox 96 93 O2 Delivery Room Air 04/13/18 04/13/18 04/13/18 04/13/18 11:59 12:06 12:29 12:30 Pulse 108 101 Resp 9 12 B/P (MAP) 119/80 (93) 105/72 (83) Pulse Ox 95 96 04/13/18 04/13/18 13:00 13:30 Pulse 104 104 Resp 20 7 B/P (MAP) 110/63 (79) 107/68 (81) Pulse Ox 95 94 Physical Exam General Appearance: The patient is alert, has no immediate need for airway protection and no current signs of toxicity. ENT: Tympanic membranes are pearly-reza, auditory canals are patent, mucus mucous membranes are moist. Respiratory: Chest is non tender, lungs are clear to auscultation. Cardiac: regular rate and rhythm, on initial evaluation I did note the patient had a heart rate of 105 on the monitor, however on exam patient's heart rate is slowed and 88 bpm. Gastrointestinal: Abdomen is soft and non tender, no masses, bowel sounds normal. Musculoskeletal: Neck: Neck is supple and non tender. Extremities have full range of motion and are non tender. Skin: No rashes or lesions. DIFFERENTIAL DIAGNOSIS: After history and physical exam differential diagnosis was considered for shortness of breath including but not limited to pulmonary infectious process, COPD, asthma, pulmonary embolus and congestive heart failu re. Medical Decision Making Data Points Result Diagram: 04/13/18 1122 04/13/18 1122 Laboratory Hematology Test 04/13/18 11:22 Red Blood Count 5.37 M/uL (4.17-5.56) Mean Corpuscular Volume 89.3 fL (80.0-96.0) Mean Corpuscular Hemoglobin 30.4 pg (26.0-33.0) Mean Corpuscular Hemoglobin Concent 34.1 g/dL (32.0-36.0) Red Cell Distribution Width 12.7 % (11.5-14.5) Mean Platelet Volume 8.8 fL (7.2-11.1) Neutrophils (%) (Auto) 71.6 % (39.4-72.5) Lymphocytes (%) (Auto) 22.3 % (17.6-49.6) Monocytes (%) (Auto) 5.4 % (4.1-12.4) Eosinophils (%) (Auto) 0.2 % (0.4-6.7) Basophils (%) (Auto) 0.5 % (0.3-1.4) Nucleated RBC Relative Count (auto) 0.0 /100WBC Neutrophils # (Auto) 6.0 K/uL (2.0-7.4) Lymphocytes # (Auto) 1.9 K/uL (1.3-3.6) Monocytes # (Auto) 0.5 K/uL (0.3-1.0) Eosinophils # (Auto) 0.0 K/uL (0.0-0.5) Basophils # (Auto) 0.0 K/uL (0.0-0.1) Nucleated RBC Absolute Count (auto) 0.00 K/uL Sodium Level 138 mmol/L (137-145) Potassium Level 3.7 mmol/L (3.5-5.0) Chloride Level 107 mmol/L (98-107) Carbon Dioxide Level 20 mmol/L (22-31) Blood Urea Nitrogen 8 mg/dl (7-18) Creatinine 0.80 mg/dl (0.52-1.04) Glomerular Filtration Rate Calc > 60.0 Random Glucose 90 mg/dl (75-110) Calcium Level 9.6 mg/dl (8.4-10.2) Total Bilirubin 0.9 mg/dl (0.2-1.3) Aspartate Amino Transf (AST/SGOT) 19 U/L (0-35) Alanine Aminotransferase (ALT/SGPT) 29 U/L (0-56) Alkaline Phosphatase 45 U/L (0-126) Troponin I < 0.012 ng/ml Total Protein 7.5 g/dl (6.3-8.2) Albumin 4.5 g/dl (3.5-5.0) Human Chorionic Gonadotropin, Qual Negative (NEGATIVE) Chemistry Test 04/13/18 11:22 White Blood Count 8.4 k/uL (4.5-11.0) Red Blood Count 5.37 M/uL (4.17-5.56) Hemoglobin 16.3 g/dL (12.0-16.0) Hematocrit 47.9 % (34.0-47.0) Mean Corpuscular Volume 89.3 fL (80.0-96.0) Mean Corpuscular Hemoglobin 30.4 pg (26.0-33.0) Mean Corpuscular Hemoglobin Concent 34.1 g/dL (32.0-36.0) Red Cell Distribution Width 12.7 % (11.5-14.5) Platelet Count 260 K/uL (150-450) Mean Platelet Volume 8.8 fL (7.2-11.1) Neutrophils (%) (Auto) 71.6 % (39.4-72.5) Lymphocytes (%) (Auto) 22.3 % (17.6-49.6) Monocytes (%) (Auto) 5.4 % (4.1-12.4) Eosinophils (%) (Auto) 0.2 % (0.4-6.7) Basophils (%) (Auto) 0.5 % (0.3-1.4) Nucleated RBC Relative Count (auto) 0.0 /100WBC Neutrophils # (Auto) 6.0 K/uL (2.0-7.4) Lymphocytes # (Auto) 1.9 K/uL (1.3-3.6) Monocytes # (Auto) 0.5 K/uL (0.3-1.0) Eosinophils # (Auto) 0.0 K/uL (0.0-0.5) Basophils # (Auto) 0.0 K/uL (0.0-0.1) Nucleated RBC Absolute Count (auto) 0.00 K/uL Glomerular Filtration Rate Calc > 60.0 Calcium Level 9.6 mg/dl (8.4-10.2) Total Bilirubin 0.9 mg/dl (0.2-1.3) Aspartate Amino Transf (AST/SGOT) 19 U/L (0-35) Alanine Aminotransferase (ALT/SGPT) 29 U/L (0-56) Alkaline Phosphatase 45 U/L (0-126) Troponin I < 0.012 ng/ml Total Protein 7.5 g/dl (6.3-8.2) Albumin 4.5 g/dl (3.5-5.0) Human Chorionic Gonadotropin, Qual Negative (NEGATIVE) EKG/Imaging EKG Interpretation 12 lead EKG: Rhythm: Sinus bradycardia with sinus arrhythmia, ventricular rate 59 bpm [place]: normal QRS: normal ST segments: normal Imaging CTA CHEST WW/O CNTR (PULM ANG) COMPARISON: March 26, 2018. HISTORY: Respiratory distress. Shortness of breath, 2-3 weeks postoperative. TECHNIQUE: Axial CT angiography of the chest with intravenous contrast. Coronal and sagittal reformats. Coronal MIP reconstructions were also created for further evaluation and interpretation. One of the following dose optimization techniques was utilized in the performance of this exam: automated exposure control; adjustment of the mA and/or kV according to patient size; or use of iterative reconstruction technique. Specific details can be referenced in the facility's radiology CT exam operational policy. CONTRAST: 75 mL of IV Isovue-370. CT CHEST FINDINGS: CARDIAC: Unremarkable. MEDIASTINUM/KYLAH: Unremarkable. No mass or significantly enlarged lymph nodes. VASCULATURE: Cardiac pulsation artifact in the ascending aorta. No evidence of acute pulmonary embolism to the segmental level. CHEST WALL: Unremarkable. No mass or axillary adenopathy. LUNGS/PLEURA: No significant pulmonary or pleural disease. No consolidation, pleural effusion or edema. BONES: Unremarkable. LIMITED ABDOMEN: Cholecystectomy clips, incompletely imaged. No residual free air in the upper abdomen. OTHER: Negative. IMPRESSION: 1. There is no evidence of acute pulmonary embolus to the segmental arterial level. 2. No cause for symptoms identified. Report Dictated By: Rufino Cedeño at 04/13/2018 12:50 PM Report E-Signed By: Rufino Cedeño at 04/13/2018 12:57 PM ED Course/Re-evaluation ED Course Patient was admitted to an exam room, history and physical were obtained. Differential diagnoses were considered. On examination lungs are clear, heart is regular, abdomen soft nontender. Patient was intermittently tachycardic up to 109 and down to the mid 80s. An EKG was done, a CBC, CMP, troponin were also done. Labs were unremarkable, EKG showed a normal sinus rhythm. A CT pulmonary angiogram was done. That was negative for both acute cardiopulmonary processes as well as pulmonary emboli. I discussed the findings with the patient and her . I did inform them that the imaging results showed no pulmonary emboli. I discussed the findings with the labs as well as EKG. As of this time with patient having chest pain and her history of reflux with hiatal hernia I do have concerns that could be the underlying cause of her chest pain. I did place the patient on 40 mg of omeprazole. Prescription was sent into her pharmacy. She is return to the emergency room if condition worsens. She is to follow-up with her primary care provider in the next week. Patient verbalized understanding and agreement with plan. Decision to Disposition Date: Apr 13, 2018 Decision to Disposition Time: 13:26 Depart Departure Latest Vital Signs Vital Signs Date Time Temp Pulse Resp B/P (MAP) Pulse Ox O2 Delivery O2 Flow Rate FiO2 04/13/18 13:30 104 7 107/68 (81) 94 04/13/18 11:04 98.4 Room Air Impression: Primary Impression: Chest pain Additional Impression: Headache Condition: Improved Disposition: HOME OR SELF-CARE New Scripts Omeprazole (OMEPRAZOLE) 40 Mg Capsule. 40 MG PO QDAY, #30 CAP Prov: LEO CARPENTER 04/13/18 Patient Instructions: Chest Pain (ED) Additional Instructions: Increase fluid intake. Get plenty of rest. Follow up with your primary care provider in the next week. Return to the ER if condition worsens. Limit activity by how you are feeling. Continue with your current medications. Problem Qualifiers Primary Impression: Chest pain Chest pain type: other chest pain Qualified Codes: R07.89 - Other chest pain Additional Impression: Headache Headache type: tension-type Headache chronicity pattern: acute headache Intractability: not intractable Qualified Codes: G44.209 - Tension-type headache, unspecified, not intractable LEO CARPENTER Apr 13, 2018 11:07
[2018-04-13] MEDS ORDERED: NS(*) 0.9% 500 ML BAG 500 ML IV ONE (11:14)
[2018-04-13] MEDS ORDERED: ONDANSETRON 4 MG/2 ML VIAL IVP ONE (11:25)
--- NOTE | 2018-04-13 11:35 | EKG ---
FACILITY: [facility] - [place] PATIENT NAME: KELLEN WEEKS : [id number] MR: [id number] V: [id number] EXAM DATE: ORDERING PHYSICIAN: LEO CARPENTER TECHNOLOGIST: JACQUELINE Test Reason : Blood Pressure : / mmHG Vent. Rate : 059 BPM Atrial Rate : 059 BPM P-R Int : 120 ms QRS Dur : 080 ms QT Int : 416 ms P-R-T Axes : 065 077 053 degrees QTc Int : 411 ms Sinus bradycardia with sinus arrhythmia Nonspecific ST abnormality Abnormal ECG When compared with ECG of 31-MAR-2018 10:50, No significant change was found Confirmed by Hi Etienne ([id number]) on 04/13/2018 6:54:09 PM Referred By: JAYDEN Confirmed By:Hi Abarca
[2018-04-13 11:39] LABS: PLATELET COUNT, AUTOMATED 260 K/uL (150-450)
[2018-04-13] MEDS ORDERED: IOPAMIDOL 76% 75 ML INFUS BTL 75 ML ONE (11:50)
[2018-04-13] MEDS ORDERED: NS(*) 0.9% 50 ML BAG 50 ML ONE (11:50)
--- NOTE | 2018-04-13 13:02 | RADIOLOGY IMAGING REPORT ---
FACILITY: [facility] [place]IENT NAME: Nalini Salgado : 1995 MR: [id number] V: [id number] EXAM DATE: ORDERING PHYSICIAN: LEO CARPENTER TECHNOLOGIST: Location: [facility] [place] Patient: Nalini Salgado : 1995 Visit/Account:[id number] Date of Sevice: 04/13/2018 CTA CHEST WW/O CNTR (PULM ANG) COMPARISON: March 26, 2018. HISTORY: Respiratory distress. Shortness of breath, 2-3 weeks postoperative. TECHNIQUE: Axial CT angiography of the chest with intravenous contrast. Coronal and sagittal reform ats. Coronal MIP reconstructions were also created for further evaluation and interpretation. One of the following dose optimization techniques was utilized in the performance of this exam: auto mated exposure control; adjustment of the mA and/or kV according to patient size; or use of iterative reconstruction technique. Specific details can be referenced in the facility's radiology CT exam op erational policy. CONTRAST: 75 mL of IV Isovue-370. CT CHEST FINDINGS: CARDIAC: Unremarkable. MEDIASTINUM/KYLAH: Unremarkable. No mass or significantly enlarged lymph nodes. VASCULATURE: Cardiac pulsation artifact in the ascending aorta. No evidence of acute pulmonary embo lism to the segmental level. CHEST WALL: Unremarkable. No mass or axillary adenopathy. LUNGS/PLEURA: No significant pulmonary or pleural disease. No consolidation, pleural effusion or [place] ma. BONES: Unremarkable. LIMITED ABDOMEN: Cholecystectomy clips, incompletely imaged. No residual free air in the upper abdom en. OTHER: Negative. IMPRESSION: 1. There is no evidence of acute pulmonary embolus to the segmental arterial level. 2. No cause for symptoms identified. Report Dictated By: Rufino Cedeño at 04/13/2018 12:50 PM Report E-Signed By: Rufino Cedeño at 04/13/2018 12:57 PM WSN:[id number]
[2018-04-13] MEDS ORDERED: KETOROLAC 15 MG/ML VIAL IVP ONE (13:10)
[2018-04-13 13:30] VITALS: BP 107/68
[2018-04-13] MEDS ORDERED: OMEP40CA48 PO (13:51)
== END 2018-04-13 13:53 | disposition home or self-care (01) ==
LOC: ER 11:11
DX: R07.89 Other chest pain (principal); G44.209 Tension-type headache, unspecified, not intractable
CPT/HCPCS: 71275; 84484; 84703; 85025; 93005; 96361; 96374; 96375; 99284; J1885; J2405; J7040; J7050; Q9967; 82040; 82247; 82310; 82374; 82435; 82565; 82947; 84075; 84132; 84155; 84295; 84450; 84460; 84520